=== PATIENT | female | born 1955 | race Caucasian/White ===

== ENCOUNTER 2020-07-04 09:03 | Outpatient (CLI) | payer MEDICARE, OTHER ==
--- NOTE | 2020-07-04 20:32 | RAD ---
LEFT HUMERUS TWO VIEWS: Date: 07-04-2020 FINDINGS: No fracture or area of bony destruction was seen. No periosteal reaction was present. The bony struct ures appear normal. IMPRESSION: No significant finding. POS: HOME
== END 2020-07-04 09:04 | disposition home or self-care (01) ==
LOC: BURRAD 09:03
PROVIDERS: ATTEND Family Medicine
DX: M79.622 Pain in left upper arm (principal)

== ENCOUNTER 2022-03-14 10:40 | Emergency (ER) | payer MEDICARE, OTHER ==
[2022-03-14] MEDS ORDERED: Fluorescein Opthalmic Strip ONE (11:00)
[2022-03-14] MEDS ORDERED: Tetracaine 0.5% PF 4 ML BOT ONE (11:00)
== END 2022-03-14 11:42 | disposition home or self-care (01) ==
LOC: BURERS 10:40
DX: H16.002 Unspecified corneal ulcer, left eye (principal); E11.9 Type 2 diabetes mellitus without complications; I10 Essential (primary) hypertension; F17.210 Nicotine dependence, cigarettes, uncomplicated
CPT/HCPCS: 99283

== ENCOUNTER 2022-08-07 08:23 | Emergency (ER) | payer MEDICARE, OTHER ==
[2022-08-07] MEDS ORDERED: Ibuprofen 800 MG TAB ONE (09:59)
== END 2022-08-07 10:11 | disposition home or self-care (01) ==
LOC: BURERS 08:23
DX: M79.601 Pain in right arm (principal); M75.41 Impingement syndrome of right shoulder; I10 Essential (primary) hypertension; E11.9 Type 2 diabetes mellitus without complications
CPT/HCPCS: 70450

== ENCOUNTER 2024-04-02 14:45 | Outpatient (CLI) | payer MEDICARE | END 2024-04-02 14:46 | disposition home or self-care (01) | LOC: BURRAD 14:45 | PROVIDERS: ATTEND Family Medicine | DX: R05.3 Chronic cough (principal) | CPT/HCPCS: 71046 ==